=== PATIENT | male | born 1955 | race Caucasian/White ===

== ENCOUNTER 2022-11-28 06:56 | Day surgery (SDC) | payer MEDICARE, BC ==
[~2022-11-28 06:56] MED LIST: Dextrose 5%-0.45% NaCl 1,000 ML IV SCH
[2022-11-28] MEDS ORDERED: fentaNYL 100 MCG/2 ML SDV ONE (07:22)
[2022-11-28] MEDS ORDERED: Midazolam 1 MG/ML 2 ML SDV ONE (07:22)
[2022-11-28] MEDS ORDERED: Midazolam 1 MG/ML 2 ML SDV IV ONE ×2 (07:29→07:30)
[2022-11-28] MEDS ORDERED: fentaNYL 100 MCG/2 ML SDV IV ONE ×2 (07:29)
== END 2022-11-28 09:20 | disposition home or self-care (01) ==
LOC: DL.ENDO 06:56
PROVIDERS: ATTEND Internal Medicine Gastroenterology
DX: K29.50 Unspecified chronic gastritis without bleeding (principal); K31.7 Polyp of stomach and duodenum; I10 Essential (primary) hypertension; E11.9 Type 2 diabetes mellitus without complications; E78.5 Hyperlipidemia, unspecified; K21.9 Gastro-esophageal reflux disease without esophagitis; N40.0 Benign prostatic hyperplasia without lower urinary tract symptoms; E66.09 Other obesity due to excess calories; Z90.49 Acquired absence of other specified parts of digestive tract; Z98.890 Other specified postprocedural states; Z68.41 Body mass index [BMI] 40.0-44.9, adult
CPT/HCPCS: 87077; J2250; J3010; J7042

== ENCOUNTER 2023-01-23 05:55 | Day surgery (SDC) | payer MEDICARE, BC ==
[2023-01-23] MEDS ORDERED: Midazolam 1 MG/ML 2 ML SDV IV ONE ×6 (05:56→07:09)
[2023-01-23] MEDS ORDERED: fentaNYL 100 MCG/2 ML SDV IV ONE ×3 (05:56→07:01)
[2023-01-23] MEDS ORDERED: Dextrose 5%-0.45% NaCl 1,000 ML IV SCH (06:00)
[2023-01-23] MEDS ORDERED: Midazolam 1 MG/ML 2 ML SDV ONE (06:52)
[2023-01-23] MEDS ORDERED: fentaNYL 100 MCG/2 ML SDV ONE (06:52)
== END 2023-01-23 09:00 | disposition home or self-care (01) ==
LOC: DL.ENDO 05:55
PROVIDERS: ATTEND Internal Medicine Gastroenterology
DX: D12.2 Benign neoplasm of ascending colon (principal); D12.4 Benign neoplasm of descending colon; D12.6 Benign neoplasm of colon, unspecified; K57.30 Diverticulosis of large intestine without perforation or abscess without bleeding; K21.9 Gastro-esophageal reflux disease without esophagitis; E66.01 Morbid (severe) obesity due to excess calories; E11.9 Type 2 diabetes mellitus without complications; Z85.038 Personal history of other malignant neoplasm of large intestine; Z79.899 Other long term (current) drug therapy; Z68.41 Body mass index [BMI] 40.0-44.9, adult
CPT/HCPCS: 88305; J2250; J3010; J7042